=== PATIENT | female | born 1990 | race Caucasian/White ===

== ENCOUNTER 2016-07-11 12:28 | Emergency (ER) | payer BC, MEDICAID ==
[~2016-07-11] VITALS: Ht 162.6 cm; Wt 123.8 kg
[2016-07-11 12:38] VITALS: BP 118/77
[2016-07-11] MEDS ORDERED: ADDERALL XR25 MG PO (12:40)
--- NOTE | 2016-07-11 12:44 | NUR ---
PATIENT AMBULATED TO ER BED 5.
--- NOTE | 2016-07-11 12:45 | NUR ---
Patient being evaluated by physician at bedside.
--- NOTE | 2016-07-11 12:46 | NUR ---
PT CAME TO ER DUE TO HEADACHE STARTING AT 0700 TODAY WITH VOMITING.PT STATES SHE TOOK PAIN MEDICATION BUT DID NOT HELP.PT DENIES CP/SOB/COUGH/RUNNY NOSE/F.AAOX4;NO ACUTE DISTRESS NOTED AT THIS TIME;HOB ELEVATED;POSITION OF COMFORT;SAFETY PRECAUTION INSTITUTED;NEEDS ATTENDED; MADE AWARE OF PT'S CONDITION.
[2016-07-11] MEDS ORDERED: ONDANSETRON 4 MG/2 ML VIAL IVP ONE ×2 (12:50→14:00)
[2016-07-11] MEDS ORDERED: NACL 0.9% 1,000 ML IV SCH (12:50)
[2016-07-11] MEDS ORDERED: HYDROmorphone PFS 2 MG/ML SYR IVP ONE (12:55)
--- NOTE | 2016-07-11 13:45 | NUR ---
PT AMBULATED TO THE RESTROOM;NO ACUTE DISTRESS NOTED AT THIS TIME;WILL CONTINUE TO MONITOR PT
--- NOTE | 2016-07-11 14:05 | NUR ---
PT WENT TO CT SCAN
[2016-07-11] MEDS ORDERED: PROCHLORPERAZINE 10 MG/2 ML VIAL IVP ONE (14:15)
--- NOTE | 2016-07-11 14:41 | NUR ---
BACK FROM CT SCAN;NO ACUTE DISTRESS NOTED AT THIS TIME;WILL CONTINUE TO MONITOR PT
--- NOTE | 2016-07-11 14:55 | NUR ---
PT IS STILL VOMITTING;NOTIFIED ER DR;WILL CONTINUE TO MONITOR PT.
--- NOTE | 2016-07-11 15:47 | NUR ---
Patient discharged with v/s stable. Written and verbal after care instructions given and explained. Patient alert, oriented and verbalized understanding of instructions. Ambulatory with steady gait. All questions addressed prior to discharge. ID band removed. Patient advised to follow up with PMD. Rx of IMITREX AND COMPAZINE given. Patient educated on indication of medication including possible reaction and side effects. Opportunity to ask questions provided and answered.
[2016-07-11 15:50] VITALS: BP 140/71
== END 2016-07-11 15:47 | disposition home or self-care (01) ==
LOC: MED 12:28
DX: G43.909 Migraine, unspecified, not intractable, without status migrainosus (principal); D69.3 Immune thrombocytopenic purpura
CPT/HCPCS: 36415; 70450; 80053; 81001; 81025; 82150; 83690; 85025; 96361; 96374; 96375; 96376; 99285; J0780; J1170; J2405; J7030